=== PATIENT | female | born 1995 | race Caucasian/White ===

== ENCOUNTER → 2018-08-25 | Outpatient (REF) | payer BC ==
[2018-08-25 18:30] LABS: BASO % 0.2 % (0.0-1.0); EOS # 0.1 10^3/uL (0.0-0.50); EOS % 1.5 % (0.0-3.0); HEMATOCRIT 39.1 % (36.0-47.0); HEMOGLOBIN 13.7 g/dl (12.0-15.5); LYMPH % 24.7 % (24.0-44.0); MEAN CORPUSCULAR HEMOGLOBIN 28.2 pg (27.0-33.0); MEAN CORPUSCULAR VOLUME 80.5 fl (80.0-96.0); MONO # 0.7 10^3/uL (0.0-0.8); MONO % 8.8 % (0.0-5.0); NEUTROPHILS # 5.3 10^3/uL (1.8-7.7); NEUTROPHILS % 64.4 % (36.0-66.0); PLATELET COUNT, AUTOMATED 321 10^3/uL (150-450); RED BLOOD COUNT 4.86 10^6/uL (4.00-5.40); WHITE BLOOD COUNT 8.2 10^3/uL (4.0-10.0)
[2018-08-25 18:31] LABS: HEMOGLOBIN A1c 5.2 %
[2018-08-25 18:57] LABS: ALBUMIN 3.7 GM/DL (3.2-5.2); ALT/SGPT 20 U/L (12-78); BILIRUBIN,TOTAL 0.5 MG/DL (0.2-1.0); BLOOD UREA NITROGEN 10 MG/DL (7-18); CALCIUM LEVEL 8.7 MG/DL (8.5-10.1); CARBON DIOXIDE LEVEL 22 MEQ/L (21-32); CHLORIDE LEVEL 107 MEQ/L (98-107); CHOLESTEROL LEVEL 199 MG/DL (<200); CHOLESTEROL RISK RATIO 5.852 (<5); CREATININE FOR GFR 0.77 MG/DL (0.55-1.30); FREE T4 1.03 NG/DL (0.76-1.46); GLOMERULAR FILTRATION RATE > 60.0 (>60); GLUCOSE, FASTING 83 MG/DL (70-100); HDL CHOLESTEROL 34 MG/DL (>40); LDL CHOLESTEROL 132 MG/DL (<100); NON-HDL-C 165 MG/DL; POTASSIUM SERUM 4.2 MEQ/L (3.5-5.1); SODIUM LEVEL 138 MEQ/L (136-145); TOTAL 25(OH) VITAMIN D 27.1 NG/ML (30.0-100.0); TOTAL PROTEIN 7.5 GM/DL (6.4-8.2); TRIGLYCERIDES LEVEL 167 MG/DL (<150)
[2018-08-27 14:22] LABS: Lyme Disease IgG/IgM Antibodie <0.91 ISR (0.00-0.90); Lyme Disease IgM Ab Quantitati <0.80 index (0.00-0.79)
== END ==
LOC: M LAB REF 16:50
PROVIDERS: ATTEND Family Medicine
DX: Z00.01 Encounter for general adult medical examination with abnormal findings (principal); Z13.228 Encounter for screening for other metabolic disorders; O99.214 Obesity complicating childbirth; Z3A.00 Weeks of gestation of pregnancy not specified

== ENCOUNTER → 2018-11-15 | Outpatient (REF) | payer BC ==
[2018-11-15 19:30] LABS: BASO % 0.4 % (0.0-1.0); EOS # 0.1 10^3/uL (0.0-0.50); EOS % 1.2 % (0.0-3.0); HEMATOCRIT 39.7 % (36.0-47.0); HEMOGLOBIN 13.5 g/dl (12.0-15.5); LYMPH # 2.3 10^3/uL (1.5-6.5); LYMPH % 30.6 % (24.0-44.0); MEAN CORPUSCULAR HEMOGLOBIN 28.1 pg (27.0-33.0); MEAN CORPUSCULAR VOLUME 82.7 fl (80.0-96.0); MONO # 0.7 10^3/uL (0.0-0.8); MONO % 8.8 % (0.0-5.0); NEUTROPHILS # 4.4 10^3/uL (1.8-7.7); NEUTROPHILS % 58.6 % (36.0-66.0); PLATELET COUNT, AUTOMATED 326 10^3/uL (150-450); WHITE BLOOD COUNT 7.5 10^3/uL (4.0-10.0)
[2018-11-15 20:44] LABS: ALBUMIN 3.7 GM/DL (3.2-5.2); ALT/SGPT 24 U/L (12-78); BILIRUBIN,TOTAL 0.3 MG/DL (0.2-1.0); BLOOD UREA NITROGEN 8 MG/DL (7-18); CARBON DIOXIDE LEVEL 24 MEQ/L (21-32); CHLORIDE LEVEL 106 MEQ/L (98-107); CHOLESTEROL LEVEL 177 MG/DL (<200); CHOLESTEROL RISK RATIO 4.214 (<5); CREATININE FOR GFR 0.73 MG/DL (0.55-1.30); FREE T4 1.06 NG/DL (0.76-1.46); GLOMERULAR FILTRATION RATE > 60.0 (>60); GLUCOSE, FASTING 78 MG/DL (70-100); HDL CHOLESTEROL 42 MG/DL (>40); LDL CHOLESTEROL 110 MG/DL (<100); NON-HDL-C 135 MG/DL; POTASSIUM SERUM 4.3 MEQ/L (3.5-5.1); SODIUM LEVEL 138 MEQ/L (136-145); TOTAL PROTEIN 8.1 GM/DL (6.4-8.2); TRIGLYCERIDES LEVEL 124 MG/DL (<150)
[2018-11-15 21:30] LABS: TOTAL 25(OH) VITAMIN D 27.5 NG/ML (30.0-100.0)
[2018-11-18 00:07] LABS: Lyme Disease IgG/IgM Antibodie <0.91 ISR (0.00-0.90); Lyme Disease IgM Ab Quantitati <0.80 index (0.00-0.79)
== END ==
LOC: M LAB REF 16:44
PROVIDERS: ATTEND Family Medicine
DX: Z00.01 Encounter for general adult medical examination with abnormal findings (principal); O99.214 Obesity complicating childbirth; Z13.228 Encounter for screening for other metabolic disorders; Z3A.00 Weeks of gestation of pregnancy not specified

== ENCOUNTER → 2019-07-08 | Outpatient (REF) | payer OTHER, MEDICAID ==
[2019-07-08 11:38] LABS: ALBUMIN 4.1 GM/DL (3.2-5.2); ALT/SGPT 19 U/L (12-78); BILIRUBIN,TOTAL 0.6 MG/DL (0.2-1.0); BLOOD UREA NITROGEN 13 MG/DL (7-18); CARBON DIOXIDE LEVEL 25 MEQ/L (21-32); CHLORIDE LEVEL 107 MEQ/L (98-107); CHOLESTEROL LEVEL 187 MG/DL (<200); CHOLESTEROL RISK RATIO 4.794 (<5); CREATININE FOR GFR 0.81 MG/DL (0.55-1.30); GLOMERULAR FILTRATION RATE > 60.0 (>60); GLUCOSE, FASTING 87 MG/DL (70-100); HDL CHOLESTEROL 39 MG/DL (>40); LDL CHOLESTEROL 116 MG/DL (<100); NON-HDL-C 148 MG/DL; POTASSIUM SERUM 4.1 MEQ/L (3.5-5.1); SODIUM LEVEL 140 MEQ/L (136-145); TOTAL PROTEIN 7.4 GM/DL (6.4-8.2); TRIGLYCERIDES LEVEL 160 MG/DL (<150)
== END ==
LOC: M LAB REF 11:02
PROVIDERS: ATTEND Family Medicine
DX: E78.5 Hyperlipidemia, unspecified (principal)

== ENCOUNTER → 2021-10-16 | Outpatient (REF) | payer OTHER, MEDICAID ==
[2021-10-16 16:46] LABS: HEMOGLOBIN 14.4 g/dl (12.0-15.5); MEAN CORPUSCULAR HEMOGLOBIN 29.4 pg (27.0-33.0); MEAN CORPUSCULAR HGB CONC 35.1 g/dl (32.0-36.5); MEAN CORPUSCULAR VOLUME 83.8 fl (80.0-96.0); PLATELET COUNT, AUTOMATED 360 10^3/uL (150-450); RED BLOOD COUNT 4.89 10^6/uL (4.00-5.40); WHITE BLOOD COUNT 10.9 10^3/uL (4.0-10.0)
[2021-10-16 18:18] LABS: HCG, SERUM QUANTITATIVE 84850 MIU/ML; HEPATITIS B SURFACE ANTIGEN NEGATIVE (NEGATIVE); HEPATITIS C VIRUS ABY INDEX 0.1 INDEX (<0.8); HIV 1&2 SCREEN CENTAUR NEGATIVE (NEGATIVE)
== END ==
LOC: M LAB REF 16:27
PROVIDERS: ATTEND Obstetrics & Gynecology
DX: Z32.01 Encounter for pregnancy test, result positive (principal); O36.80X0 Pregnancy with inconclusive fetal viability, not applicable or unspecified

== ENCOUNTER → 2021-10-29 | Outpatient (CLI) | payer OTHER | LOC: M WHC 13:13 | PROVIDERS: ATTEND Obstetrics & Gynecology | DX: Z36.87 Encounter for antenatal screening for uncertain dates (principal); Z3A.10 10 weeks gestation of pregnancy; O26.891 Other specified pregnancy related conditions, first trimester; N83.8 Other noninflammatory disorders of ovary, fallopian tube and broad ligament; N83.11 Corpus luteum cyst of right ovary ==

== ENCOUNTER → 2021-12-05 | Outpatient (CLI) | payer OTHER ==
[2021-12-06 12:48] LABS: GC DNA AMPLIFICATION NEGATIVE (NEGATIVE)
== END ==
LOC: M PLALAB 10:58
PROVIDERS: ATTEND Advanced Practice Midwife
DX: Z36.89 Encounter for other specified antenatal screening (principal); Z3A.15 15 weeks gestation of pregnancy

== ENCOUNTER → 2021-12-31 | Outpatient (CLI) | payer OTHER | LOC: M WHC 09:53 | PROVIDERS: ATTEND Advanced Practice Midwife | DX: Z36.89 Encounter for other specified antenatal screening (principal); Z3A.15 15 weeks gestation of pregnancy ==

== ENCOUNTER → 2022-03-06 | Outpatient (CLI) | payer OTHER ==
[2022-03-06 13:54] LABS: HEMATOCRIT 35.5 % (36.0-47.0); HEMOGLOBIN 11.7 g/dl (12.0-15.5); MEAN CORPUSCULAR HEMOGLOBIN 28.7 pg (27.0-33.0); MEAN CORPUSCULAR VOLUME 87.2 fl (80.0-96.0); PLATELET COUNT, AUTOMATED 235 10^3/uL (150-450); RED BLOOD COUNT 4.07 10^6/uL (4.00-5.40); WHITE BLOOD COUNT 11.7 10^3/uL (4.0-10.0)
[2022-03-06 16:00] LABS: GC DNA AMPLIFICATION NEGATIVE (NEGATIVE)
== END ==
LOC: M PLALAB 08:54
PROVIDERS: ATTEND Specialist
DX: Z34.02 Encounter for supervision of normal first pregnancy, second trimester (principal)

== ENCOUNTER 2022-04-19 23:47 | Inpatient (IN) | payer OTHER ==
[~2022-04-19] VITALS: Ht 157.5 cm; Wt 95.6 kg
[2022-04-20] VITALS (11 sets, daily range): BP systolic 98–124; BP diastolic 52–89
[2022-04-20] MEDS ORDERED: ceFAZolin SOD 2 GM in IV 1 EA IV STA (00:40)
[2022-04-20] MEDS: BETAMETHASONE SOLUSPAN 6MG/ML 5ML VIAL (J0702 PER 3MG) IM SCH ×2 (01:13→13:22)
[2022-04-20] MEDS ORDERED: LR 1,000 ML IV SCH (01:20)
[2022-04-20] MEDS ORDERED: LR 1,000 ML IV ONE (01:20)
[2022-04-20 03:48] LABS: HEMATOCRIT 35.2 % (36.0-47.0); MEAN CORPUSCULAR HEMOGLOBIN 28.5 pg (27.0-33.0); MEAN CORPUSCULAR HGB CONC 34.1 g/dl (32.0-36.5); MEAN CORPUSCULAR VOLUME 83.6 fl (80.0-96.0); PLATELET COUNT, AUTOMATED 237 10^3/uL (150-450); RED BLOOD COUNT 4.21 10^6/uL (4.00-5.40); WHITE BLOOD COUNT 11.7 10^3/uL (4.0-10.0)
[2022-04-20] MEDS: ceFAZolin SOD 1 GM in D5W MINI-BAG PLUS 50 ML IV SCH ×2 (09:36→18:17)
[2022-04-20] MEDS: miSOPROStol 50MCG 1/2 TABLET SL SCH ×2 (13:22→18:22)
[2022-04-20] MEDS ORDERED: BUTORPHANOL 2 MG/ML INJ (J0595) IV ONE (21:05)
[2022-04-20] MEDS ORDERED: PROMETHAZINE 25MG/ML 1ML VIAL IV ONE (21:05)
[2022-04-20] MEDS ORDERED: OXYTOCIN 30 UNITS IN 0.9% NaCl 500ML IV BAG (J2590) As Ordered ONE (23:48)
[2022-04-21] VITALS (7 sets, daily range): BP systolic 105–116; BP diastolic 59–65
[2022-04-21] MEDS ORDERED: LIDOCAINE 1% MDV 20ML VIAL As Ordered ONE (00:23)
[2022-04-21 00:35] LABS: CORD GAS ABE A -7.8; CORD GAS ABE V -5.8; CORD GAS HCO3 A 22.1 MEQ/L; CORD GAS HCO3 V 19.3 MEQ/L; CORD GAS O2 SAT A 55.3 %; CORD GAS O2 SAT V 78.6 %; CORD GAS PCO2 A 64.1 mmHg; CORD GAS PCO2 V 36.6 mmHg; CORD GAS PH A 7.155 UNITS; CORD GAS PH V 7.339 UNITS; CORD GAS PO2 A 26.6 mmHg; CORD GAS PO2 V 33.2 mmHg; CORD GAS SBC A 17.3 MEQ/L; CORD GAS SBC V 19.3 MEQ/L; CORD GAS TCO2 V 20.4 MEQ/L
[2022-04-21] MEDS ORDERED: OXYTOCIN DRIP 30 UNITS in IV 1 EA IV ONE (00:55)
[2022-04-21] MEDS ORDERED: LIDOCAINE 1% MDV 20ML VIAL INFIL ONE (00:55)
[2022-04-21] MEDS ORDERED: DOCUSATE SODIUM 100MG CAPSULE PO PRN (00:55)
[2022-04-21] MEDS ORDERED: RHOGAM 300 MCG (1500 IU) INJ (J2790) IM SCH (00:55)
[2022-04-21] MEDS ORDERED: METHYLERGONOVINE MALEATE 0.2 MG TAB PO PRN (00:55)
[2022-04-21] MEDS ORDERED: ACETAMINOPHEN TAB 650MG DOSE (2X325MG) PO PRN (00:55)
[2022-04-21] MEDS ORDERED: DIBUCAINE 1% OINTMENT 30GM TOP PRN (00:55)
[2022-04-21] MEDS: PRENATAL VITAMINS CHEWABLE TABLET PO SCH (07:54)
[2022-04-21] MEDS: IBUPROFEN 800 MG TAB PO PRN ×2 (07:54→19:50)
[2022-04-21] MEDS: ACETAMINOPHEN 500 MG TAB PO PRN (13:32)
[2022-04-22] MEDS: IBUPROFEN 600MG TAB PO PRN ×2 (05:48→18:00)
[2022-04-22 06:00] VITALS: BP 101/58
[2022-04-22] MEDS: PRENATAL VITAMINS CHEWABLE TABLET PO SCH (11:06)
[2022-04-22] MEDS: ACETAMINOPHEN 500 MG TAB PO PRN ×2 (14:10→21:44)
[2022-04-22 18:00] VITALS: BP 111/74
[2022-04-23 06:06] VITALS: BP 102/55
[2022-04-23] MEDS ORDERED: MEASLES,MUMPS,RUBELLA VACCINE INJ (MMR-II) (90707) SC.IMMUN ONE (09:00)
[2022-04-23] MEDS: PRENATAL VITAMINS CHEWABLE TABLET PO SCH (11:26)
== END 2022-04-23 14:32 | disposition home or self-care (01) | DRG 807 ==
LOC: M LDO 23:47 → M LDI 04-20 00:36 → M OBS 04-21 06:03
PROVIDERS: ADMIT Specialist; ATTEND Specialist
PROC: 10E0XZZ Delivery of Products of Conception, External Approach (ICD-10-PCS; principal; 2022-04-21)
PROC: 0KQM0ZZ Repair Perineum Muscle, Open Approach (ICD-10-PCS; 2022-04-21)
DX: O42.013 Preterm premature rupture of membranes, onset of labor within 24 hours of rupture, third trimester (principal); Z37.0 Single live birth; Z3A.34 34 weeks gestation of pregnancy; O70.1 Second degree perineal laceration during delivery; Z88.0 Allergy status to penicillin

== ENCOUNTER → 2022-09-30 | Outpatient (CLI) | payer OTHER ==
[2022-09-30 19:40] LABS: BASO # 0.1 10^3/uL (0.0-0.2); BASO % 0.5 % (0.0-1.0); EOS # 0.2 10^3/uL (0.0-0.5); EOS % 1.9 % (0.0-3.0); HEMATOCRIT 40.6 % (36.0-47.0); LYMPH # 2.8 10^3/uL (1.5-5.0); LYMPH % 26.5 % (24.0-44.0); MEAN CORPUSCULAR HEMOGLOBIN 25.5 pg (27.0-33.0); MEAN CORPUSCULAR VOLUME 79.8 fl (80.0-96.0); MONO # 0.9 10^3/uL (0.0-0.8); NEUTROPHILS # 6.7 10^3/uL (1.5-8.5); NEUTROPHILS % 62.5 % (36.0-66.0); PLATELET COUNT, AUTOMATED 333 10^3/uL (150-450); RED BLOOD COUNT 5.09 10^6/uL (4.00-5.40); WHITE BLOOD COUNT 10.7 10^3/uL (4.0-10.0)
[2022-09-30 20:13] LABS: THYROID STIMULATING HORMONE 5.031 uIU/ML (0.55-4.78)
[2022-09-30 20:15] LABS: FREE T4 0.86 NG/DL (0.89-1.76)
[2022-09-30 20:17] LABS: ALBUMIN 3.8 G/DL (3.2-5.2); ALKALINE PHOSPHATASE 70 U/L (46-116); ALT/SGPT 35 U/L (7.0-40); AST/SGOT 23 U/L (<34); BILIRUBIN,TOTAL 0.2 MG/DL (0.3-1.2); BLOOD UREA NITROGEN 17 MG/DL (9-23); CARBON DIOXIDE LEVEL 26 MMOL/L (20-31); CHLORIDE LEVEL 105 MMOL/L (98-107); CREATININE FOR GFR 0.86 MG/DL (0.55-1.30); GLOMERULAR FILTRATION RATE > 60.0 (>60); GLUCOSE, FASTING 75 MG/DL (60-100); POTASSIUM SERUM 4.3 MMOL/L (3.5-5.1); SODIUM LEVEL 138 MMOL/L (136-145); TOTAL PROTEIN 7.1 G/DL (5.7-8.2)
[2022-09-30 20:21] LABS: HEMOGLOBIN A1c 5.1 % (4.0-6.0)
== END ==
LOC: M PLALAB 15:12
PROVIDERS: ATTEND Nurse Practitioner Family
DX: N92.6 Irregular menstruation, unspecified (principal)

== ENCOUNTER → 2022-11-21 | Outpatient (REF) | payer OTHER | LOC: M PLALAB 16:28 | PROVIDERS: ATTEND Nurse Practitioner Family | DX: Z12.4 Encounter for screening for malignant neoplasm of cervix (principal) ==

== ENCOUNTER → 2022-12-26 | Outpatient (REF) | payer OTHER | LOC: M LAB REF 12:20 | PROVIDERS: ATTEND Family Medicine Addiction Medicine | DX: E03.9 Hypothyroidism, unspecified (principal) ==